=== PATIENT | female | born 1990 | race Caucasian/White ===

== ENCOUNTER → 2016-06-15 | Outpatient (CLI) | payer BC | END | disposition home or self-care (01) | LOC: LABWHC1 13:00 | PROVIDERS: ATTEND Nurse Practitioner Adult Health | DX: G43.909 Migraine, unspecified, not intractable, without status migrainosus (principal) | CPT/HCPCS: 36415; 85652 ==

== ENCOUNTER → 2021-04-04 | Outpatient (CLI) | payer BC ==
[2021-04-04 20:18] LABS: Creatine Kinase 43 U/L (26-186)
[2021-04-04 20:41] LABS: C Reactive Protein <0.30 mg/dL (0.00-0.80); Rheumatoid Factor, Qnt <10 IU/mL (0-15)
[2021-04-05 11:01] LABS: HLA B27 NEGATIVE
== END | disposition home or self-care (01) ==
LOC: LABWHC1 11:06
PROVIDERS: ATTEND Nurse Practitioner Adult Health
DX: Z00.00 Encounter for general adult medical examination without abnormal findings (principal); M25.50 Pain in unspecified joint
CPT/HCPCS: 36415; 82550; 84439; 84443; 85652; 86038; 86140; 86431; 86812

== ENCOUNTER → 2021-06-02 | Outpatient (CLI) | payer BC ==
[2021-06-02 14:53] LABS: Basophils # (A) 0.04 X 10*3/uL (0.00-0.10); Basophils % (A) 0.6 %; Eosinophils # (A) 0.16 X 10*3/uL (0.04-0.35); Eosinophils % (A) 2.5 %; HCT 40.5 % (37.2-46.3); HGB 13.3 g/dL (12.0-15.0); Immature Grans, Automated 0.3 %; Lymphocytes # (A) 0.84 X 10*3/uL (0.90-5.00); Lymphocytes % (A) 12.9 %; MCH 29.3 pg (27.0-32.0); MCHC 32.8 g/dL (32.0-37.0); MCV 89.2 fL (80.0-97.0); Mean Platelet Volume 11.7 fL (9.5-12.2); Monocytes # (A) 0.38 X 10*3/uL (0.20-1.00); Monocytes % (A) 5.9 %; NRBC Per 100 WBC 0 /100 WBCS (0.0-0.0); Neutrophils # (A) 5.05 X 10*3/uL (1.80-7.70); Neutrophils % (A) 77.8 %; Platelet Count 224 X 10*3/uL (140-440); RBC 4.54 X 10*6/uL (4.10-5.20); RDW 13.1 % (11.5-14.5); WBC 6.49 X 10*3/uL (4.50-10.00)
[2021-06-02 16:36] LABS: Ferritin 80.7 ng/mL (10.0-291.0)
[2021-06-02 18:17] LABS: EBV-EA (IgG) <0.2 AI; EBV-EBNA(IgG) <0.2 AI; EBV-VCA (IgG) <0.2 AI; EBV-VCA (IgM) <0.2 AI
[2021-06-03 13:17] LABS: Angiotensin-1 Converting Enz. 26 U/L (8-52)
[2021-06-03 13:56] LABS: APTT 35 Sec(s) (<43); Dilute Russell Viper Venom 41 Sec(s) (<44)
== END | disposition home or self-care (01) ==
LOC: LABWHC1 08:45
PROVIDERS: ATTEND Nurse Practitioner Adult Health
DX: R58 Hemorrhage, not elsewhere classified (principal); I88.9 Nonspecific lymphadenitis, unspecified; L29.9 Pruritus, unspecified
CPT/HCPCS: 36415; 82164; 82607; 82728; 83540; 83550; 85025; 85613; 85730; 86618; 86644; 86645; 86663; 86664; 86665

== ENCOUNTER → 2021-10-06 | Outpatient (CLI) | payer BC ==
[2021-10-06 10:15] VITALS: BP 123/82; PULSE 98; RESP 18; TEMP 98.7
--- NOTE | 2021-10-06 10:38 | P.PAINPG ---
PQRS Measure Charge Sheet Comment: HISTORY OF PRESENT ILLNESS: 31 yr old female as a referral from Dr Reeves presents today with severe and chronic cervical pain secondary to disc bulges for an evaluation. Pt states her pain is localized at the base of her neck x 2 mo with shooting pain upwards to base of head. It is 8/10 in intensity, constant, tingling/throbbing/stabbing pain in character with radiation to the BUEs. Pain is provoked with hypextension and overhead reaching. Pain is palliated with PT which she will start in the afternoons, massage once monthly, chiropractic treatments up until 2 mo ago due to painful treatment, medications (Mobic, Tramadol, Flexeril), topicals, heat, repositioning and rest. PMH: ADD/ADHD, HTN, MDD/ Anxiety PSH: R Mastoid Surgery, R Knee Arthroscopy x 2, R Breast Lumpectomy SH: No tobacco use, occasional ETOH use, No illicit drug use. FH: HTN, Difficulty handling anesthesia. All: See list Meds: See list REVIEW OF ORGAN SYSTEMS: CONSTITUTIONAL: No fevers or chills. No recent weight loss. NEUROLOGICAL: + numbness and tingling along the distal extremities. No seizure disorders or headaches. MUSCULOSKELETAL: + pain PSYCHIATRIC: Denies current depression or suicidal thoughts. Physical Examinations : Constitutional : Cooperative , not in acute distress . Neurologic : Cranial nerve II to XII intact. No focal neurological deficits. Psychiatric : alert & oriented x 3. Matching mood & appropriate affect. Judgment & insight intact. Musculoskeletal : Cervical Spine Motor strength in the deltoid and biceps: Normal right side. Normal Left side Motor strength biceps and the wrist extensors: Normal right side . Normal left side Motor strength in the triceps muscle: Normal right side. Normal left side Deep tendon reflexes: Normal at the biceps. Normal at Brachioradialis. Normal at triceps Vertebral body tenderness to deep palpation over C6 Cervical facet loading test: positive bilaterally Spurling test: positive bilaterally Neck distraction test: positive bilaterally Li sign: positive bilaterally Lumbar spine Motor strength lower extremities ,thigh and legs 5/5 Right side , 5/5 Left side Deep tendon reflexes : Normal Knee Jerk. Normal Ankle Jerk Vertebral body tenderness over Lumbar facet Loading Test: positive Right / positive Left Range of motion of the lumbar spine Flexion 30 degrees, extension 10 degrees Straight Leg Raise test: Left/ Right positive at degree Asaf test: positive right / positive left. Severe tenderness over the Sacroiliac joint on the Right / Left sides Gaenslen test: positive bilaterally Seated flexion test: positive bilaterally. Sacral spine : Severe tenderness over the Sacroiliac joint: right side / left side Range of motion: Flexion of the lumbar spine <60 degrees Range of motion: Extension of the lumbar spine <20 degrees Gaenslen's Test positive Sean's Test positive Asaf test: positive right side / left side Thigh Thrust Test Sacral Thrust Test Imaging: MRI without contrast of the cervical spine from 09/07/21 reviewed Assessment/ Plan : Cervical disc bulges Recommendation of FEDER[place] of C5-C6. May need a series of injections, up to 3 within a 6 mo period for optimal pain relief. Risks, benefits of procedure discussed and patient verbalized understanding. Denies aspirin or anti- coagulant use or medical history of diabetes. Protocol for discontinuation/ continuation of medications alek procedure discussed. All questions answered. I have spent greater than 30 minutes on patient care today. Dr Henson was available by phone for the evaluation of this patient. The time was used to review the medical records including relevant urine studies and Prescription history (MAPs), review of the available imaging, evaluation and examination of the patient, coordination of care with the medical staff and if applicable referring physicians, as well as creation of the medical record PQRS Narrative: Smoking Status Never smoker Home Medications: Ambulatory Orders Calcium Carbonate [Tums] 500 mg PO TID PRN 05/26/14 Ibuprofen [Motrin] 600 mg PO Q6HR PRN #40 tab 05/29/14 Labetalol [Trandate] 100 mg PO BID #40 tab 05/29/14 Dextroamphetamine/Amphetamine [Adderall] 30 mg PO DAILY 04/04/17 Docusate [Colace] 100 mg PO BID #30 capsule 04/04/17 Escitalopram [Lexapro] 10 mg PO DAILY 04/04/17 Hydrocodone/Acetaminophen [[place] 5-325] 1 each PO Q6HR PRN #20 tab 04/04/17 Controlled Substance Measures - Controlled Substance Measures Is patient prescribed a controlled substance at discharge?: No
== END | disposition home or self-care (01) ==
LOC: PNWHC3 08:59
PROVIDERS: ATTEND Specialist
DX: M50.30 Other cervical disc degeneration, unspecified cervical region (principal)
CPT/HCPCS: 99211

== ENCOUNTER → 2021-12-21 | Outpatient (CLI) | payer BC ==
[2021-12-21 09:02] VITALS: BP 143/92; PULSE 100; RESP 18; TEMP 98.1
--- NOTE | 2021-12-21 14:37 | P.PAINPG ---
PQRS Measure Charge Sheet Comment: A 31 yr old female with a history of severe and chronic head and neck pain secondary to occipital neuralgia presents today for evaluation s/p R interlaminar C6-7 EBONIE. Pt stated she experienced 0% pain relief. Pain level is currently at 8/10 in intensity, constant, localized in the base of the head, dull/ achy in character w shooting towards the BL scalp and the R eye. Pain is provoked by lifting and laying on her L side. Pain is alleviated with massages monthly, chirorpactic treatments monthly which she stopped this month due to high pain intensity, heat, ice, medications (Tramadol, Flexeril, Lidocaine, Neurontin, Mobic). She hasn't started PT yet due to scheduling issues. Interventional pain procedures completed include R interlaminar C6-7 x1. Patient is currently on Neurontin, Mobic, Tramadol prin, Flexeril prn, Lidocaine topical. Patient denies any side effects of the medication(s), denies excessive drowsiness or sleepiness, denies suicidal ideation and reports that the current pain medication is helping to control the pain and improve activities of daily living. Patient denies any motor or sensory deficits. Patient denies any fever or night sweats, denies any change in the bowel movements or urination. Physical Examination: +BL G.O.N. TTP -Constitutional: Cooperative. Not in acute distress . - Neurologic: Cranial nerve II to XII intact. No focal neurological deficits. - Psychatric: Alert & oriented x 3. Matching mood & appropriate affect. Judgment and insight intact. - Musculoskeletal: Cervical spine: Muscle bulk/ tone/ strength in the bilateral upper extremities normal Vertebral body tenderness to palpation over Spurling test positive Distraction test positive Facet loading test positive Thoracic spine Muscle bulk / tone/ strength in the bilateral paraspinal muscles normal Vertebral body tender to palpation over Facet loading test positive Lumbar spine: Motor bulk/ tone/ strength lower extremities , thigh and legs : 5/5 Deep tendon reflexes : Normal Knee Jerk. Normal Ankle Jerk . Vertebral body tenderness to palpation over Lumbar Facet Loading Test positive Straight Leg Raise: positive at 30 degrees right side/ left side Gaenslen's Test positive Sacral spine : Severe tenderness over the Sacroiliac joint: right side / left side Range of motion: Flexion of the lumbar spine <60 degrees Range of motion: Extension of the lumbar spine <20 degrees Gaenslen's Test positive Sean's Test positive Asaf test: positive right side / left side Thigh Thrust Test Sacral Thrust Test Assessment and plan: Chronic head & neck pain secondary to occipital neuralgia Recommendation of BL G.O.N. injection. May need a series, up until RFA, for optimal pain relief. Risks, benefits of procedure discussed and pt verbalized understanding. Admits to anticoagulant use and denies a medical history of diabetes. Protocol for discontinuation/ continuation of medications alek procedure discussed. All patient questions answered MAPS reviewed and it was appropriate. I have spent less than 30 minutes on patient care today. Dr Henson was available by phone for the evaluation of this patient. The time was used to review the medical records including relevant urine studies and Prescription history (MAPs), review of the available imaging, evaluation and examination of the patient, coordination of care with the medical staff and if applicable referring physicians, as well as creation of the medical record PQRS Narrative: Smoking Status Never smoker Hx Alcohol Use (MH) No Home Medications: Ambulatory Orders Dextroamphetamine/Amphetamine [Adderall] 30 mg PO DAILY 04/04/17 Albuterol Inhaler [Ventolin Hfa Inhaler] 1 - 2 puff INHALATION DIRECTED PRN 11/08/21 Budesonide-Formot 160-4.5 Mcg [Symbicort 160-4.5 Mcg Inhaler] 2 puff INHALATION BID PRN 11/08/21 DULoxetine HCL [Cymbalta] 60 mg PO DAILY 11/08/21 Etonogestrel/Ethinyl Estradiol [Nuvaring Vaginal Ring] 1 ring VAGINAL DIRECTED 11/08/21 Gabapentin [Neurontin] 300 - 900 mg PO TID PRN 11/08/21 Meloxicam [Mobic] 7.5 mg PO DAILY 11/08/21 Propranolol [Inderal] 10 mg PO TID PRN 11/08/21 Rizatriptan Benzoate [Rizatriptan] 10 mg PO DIRECTED PRN 11/08/21 traMADol HCL 50 mg PO TID PRN 11/08/21 Controlled Substance Measures - Controlled Substance Measures Is patient prescribed a controlled substance at discharge?: No
== END | disposition home or self-care (01) ==
LOC: PNWHC3 08:10
PROVIDERS: ATTEND Specialist
DX: M54.81 Occipital neuralgia (principal)
CPT/HCPCS: 99211

== ENCOUNTER 2022-01-19 09:47 | Day surgery (SDC) | payer BC ==
[2022-01-19 10:40] VITALS: TEMP 98.7
[2022-01-19] MEDS ORDERED: LACTATED RINGERS 1,000 ML IV ONE ×2 (10:53)
[2022-01-19] MEDS ORDERED: TRIAMCINOLONE ACETONIDE 40 MG/ML 1 ML VIAL ONE (11:07)
[2022-01-19] MEDS ORDERED: MIDAZOLAM 2 MG/2 ML VIAL ONE (11:07)
[2022-01-19] MEDS ORDERED: fentaNYL (PF) 50 MCG/ML 2 ML AMP ONE (11:07)
[2022-01-19] MEDS ORDERED: IV FLUID CONTINUATION 1,000 ML IV ONE (11:27)
--- NOTE | 2022-01-19 11:27 | P.PCN ---
Date of Procedure: 01/19/22 Description of Procedure: Pre-operative diagnosis: 1- Bilateral occipital neuralgea Post Operative Diagnosis 1- Bilateral occipital neuralgea Procedure: 1- Bilateral occipital nerve block with ultrasound guidance ANESTHESIA: Conscious sedation with Versed 1 mg and fentanyl 50 micrograms Sedation time: 9792-4420 EBL: Minimal PROCEDURE INDICATION: The patient with neck pain and headache secondary to occipital neuralgea unresponsive to conservative treatments. PROCEDURE DESCRIPTION / TECHNIQUE: The patient was seen and identified in the preoperative area. Risks, benefits, complications, and alternatives were discussed with the patient, the patient agreed to proceed with the procedure and signed the consent. IV was started. Vital signs remained stable throughout the procedure. Patient was taken to the OR and time out was completed. The patient was placed in the (sitting ) position on the stretcher leaning into procedure table. A pillow was placed under the patients chest to increase the cervical interlaminar space. Ultrasound guidance was utilized, started with the right occipital nerve along C2 spinous process was able to identify the semispinalis capitis muscle just beneath the muscle plane the occipital artery was identified. In plain needling was utilized with a 25-gauge 1-1/2 inch needle just medial to the occipital artery after negative aspiration for blood 3 ML's of solution was injected which consisted of 20 mg of Kenalog and 2-1/2 mL of 1% lidocaine. The same procedure was performed on the left side again identified and the semispinalis capitis muscle in the occipital artery. Targeted needle was medial to the occipital artery and after negative aspiration and injection of 3 ML solution consisting of 20 mg of Kenalog and 2 half mL of 1% lidocaine. Patient tolerated procedure well. Patient tolerated procedure well. No acute complications. Ultrasound images were printed
[2022-01-19] MEDS ORDERED: LACTATED RINGERS 1,000 ML IV SCH (11:30)
[2022-01-19 11:31] VITALS: RESP 15
[2022-01-19 11:48] VITALS: BP 135/97; PULSE 75
== END 2022-01-19 12:15 | disposition home or self-care (01) ==
LOC: ORPAIN 09:47
PROVIDERS: ATTEND Anesthesiology
DX: M54.81 Occipital neuralgia (principal)
CPT/HCPCS: 81025; 64405; 76942; J2250; J3301; J3010; 99152

== ENCOUNTER → 2022-02-09 | Outpatient (CLI) | payer BC ==
[2022-02-09 08:33] VITALS: BP 146/101; PULSE 89; RESP 18
--- NOTE | 2022-02-09 14:59 | P.PAINPG ---
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 Pt states she experienced 70 % pain relief x 3 wks s/p procedure. Pain level is currently at 3 /10 in intensity, constant, localized in the base of the head, pressure in character with shooting towards the BL scalp. Pain is provoked as high as 6/10 by hyperextension. Pain is alleviated with occasions (tramadol, Flexeril, Neurontin, Mobic), injections, PT 4 weeks which she is currently an, chiropractic treatments weekly as needed, repositioning and rest. Interventional pain procedures completed include BL ANGELA, [place] x1 Patient is currently on Mobic Patient denies any side effects of the medication(s), denies excessive drowsiness or sleepiness, denies suicidal ideation and reports that the current pain medication is helping to control the pain and improve activities of daily living. Patient denies any motor or sensory deficits. Patient denies any fever or night sweats, denies any change in the bowel movements or urination. Physical Examination: -Constitutional: Cooperative. Not in acute distress . - Neurologic: Cranial nerve II to XII intact. No focal neurological deficits. - Psychatric: Alert & oriented x 3. Matching mood & appropriate affect. Judgment and insight intact. - Musculoskeletal: Cervical spine: +BL ANGELA TTP Muscle bulk/ tone/ strength in the bilateral upper extremities normal Vertebral body tenderness to palpation over Spurling test positive Distraction test positive Facet loading test positive Thoracic spine Muscle bulk / tone/ strength in the bilateral paraspinal muscles normal Vertebral body tender to palpation over Facet loading test positive Lumbar spine: Motor bulk/ tone/ strength lower extremities , thigh and legs : 5/5 Deep tendon reflexes : Normal Knee Jerk. Normal Ankle Jerk . Vertebral body tenderness to palpation over Lumbar Facet Loading Test positive Straight Leg Raise: positive at 30 degrees right side/ left side Gaenslen's Test positive Sacral spine : Severe tenderness over the Sacroiliac joint: right side / left side Range of motion: Flexion of the lumbar spine <60 degrees Range of motion: Extension of the lumbar spine <20 degrees Gaenslen's Test positive Sean's Test positive Asaf test: positive right side / left side Thigh Thrust Test Sacral Thrust Test Assessment and plan: Chronic HAs secondary to cervical disc bulges, BL Occipital Neuralgia, Cervicogenic SILVERIO Recommendation of BL GO an injection #2. May need a series of injections, up to 3 within a six-month timeframe, optimal pain relief. Risks, benefits of procedure discussed and pt verbalized understanding. Admits to anticoagulant use or medical history of diabetes. Protocol for discontinuation/continuation of medications alek procedure discussed. All patient questions answered I have spent less than 30 minutes on patient care today. Dr Henson was available by phone for the evaluation of this patient. The time was used to review the medical records including relevant urine studies and Prescription history (MAPs), review of the available imaging, evaluation and examination of the patient, coordination of care with the medical staff and if applicable referring physicians, as well as creation of the medical record PQRS Narrative: Smoking Status Never smoker Hx Alcohol Use (MH) No Home Medications: Ambulatory Orders Dextroamphetamine/Amphetamine [Adderall] 30 mg PO DAILY 04/04/17 Albuterol Inhaler [Ventolin Hfa Inhaler] 1 - 2 puff INHALATION DIRECTED PRN 11/08/21 Budesonide-Formot 160-4.5 Mcg [Symbicort 160-4.5 Mcg Inhaler] 2 puff INHALATION BID PRN 11/08/21 DULoxetine HCL [Cymbalta] 60 mg PO DAILY 11/08/21 Etonogestrel/Ethinyl Estradiol [Nuvaring Vaginal Ring] 1 ring VAGINAL DIRECTED 11/08/21 Gabapentin [Neurontin] 300 - 900 mg PO TID PRN 11/08/21 Meloxicam [Mobic] 7.5 mg PO DAILY 11/08/21 Propranolol [Inderal] 10 mg PO TID PRN 11/08/21 Rizatriptan Benzoate [Rizatriptan] 10 mg PO DIRECTED PRN 11/08/21 traMADol HCL 50 mg PO TID PRN 11/08/21 Controlled Substance Measures - Controlled Substance Measures Is patient prescribed a controlled substance at discharge?: No
== END | disposition home or self-care (01) ==
LOC: PNWHC3 08:06
PROVIDERS: ATTEND Specialist
DX: G44.86 Cervicogenic headache (principal); M54.81 Occipital neuralgia
CPT/HCPCS: 99211

== ENCOUNTER 2022-03-21 07:05 | Day surgery (SDC) | payer BC ==
[2022-03-20 09:07] VITALS: BMI 34.7
[2022-03-21] MEDS ORDERED: LACTATED RINGERS 1,000 ML IV ONE (07:24)
[2022-03-21 07:36] VITALS: TEMP 98.1
[2022-03-21] MEDS ORDERED: methylPREDNISolone ACETATE 80 MG/ML 1 ML VIAL ONE (07:57)
[2022-03-21] MEDS ORDERED: MIDAZOLAM 2 MG/2 ML VIAL ONE (07:57)
[2022-03-21] MEDS ORDERED: fentaNYL (PF) 50 MCG/ML 2 ML AMP ONE (07:57)
[2022-03-21] MEDS ORDERED: ROPIVACAINE 5 MG/ML 20 ML AMPULE ONE (07:57)
[2022-03-21] MEDS ORDERED: LACTATED RINGERS 1,000 ML IV SCH (08:00)
[2022-03-21] MEDS ORDERED: IV FLUID CONTINUATION 1,000 ML IV ONE (08:15)
[2022-03-21 08:31] VITALS: BP 125/87; PULSE 79; RESP 16
--- NOTE | 2022-03-21 09:20 | P.PCN ---
Date of Procedure: 03/21/22 Description of Procedure: PREOPERATIVE DIAGNOSIS: Occipital neuralgia, and headaches POSTOPERATIVE DIAGNOSIS: Occipital neuralgia, and headaches PROCEDURES: 1. Bilateral Greater occipital nerve block under ultrasound guidance SURGEON: Cheyenne Rodriguez ANESTHESIA: Local and IV sedation : Versed 1 mg, and fentanyl 50 g. Sedation supervision start time: 0 759 Edition supervision ended time: 08 EBL: None. Specimen removed: None PROCEDURE INDICATIONS: This patient with a history of chronic headaches, and occipital neuralgia. Patient tried conservative therapy. Came here for intervention management. Procedure and Findings: The patient was seen and examined and written informed consent was obtained after explaining the risks, benefits and alternative of the procedure to the patient. As per patient request for anxiety IV was started in the preoperative holding area for sedation. The patient was positioned in the sitting position in stretcher with the head slightly flexed and forehead rested on a pillow OR table. The skin preparation was done with ChloraPrep X2 and sterile technique was observed throughout the procedur. By palpation, the external occipital protuberance and mastoid process were identified and mid point in between was located. Using ultrasound guidance , occipital artery identified. A 25-guage, 1.5 inch needle was used for the procedure. A 25-gauge 1.5 inch needle was placed vertically downward, bony contact was obtained, negative aspiration was confirmed and 6 ml solution was injected. The needle was redirected little medially and laterally in a fanning fashion and addition medication was injected after negative aspiration. The block solution containing 0.5% preservative-free ropivacaine 5mL +40 MG of Depo- Medrol. The needle was removed, Entire procedure repeated on the right side for greater occipital nerve block. Needle removed. Needle puncture sites were cleaned and pressure was applied. The patient tolerated the procedure very well. COMPLICATIONS: None. DISPOSITION / PLANS: The patient was placed in a supine position and transferred to the recovery area in a stable condition for observation and was discharged from the recovery room after meeting discharge criteria. Home discharge instructions given to the patient by the staff. The patient was reexamined prior to discharge. The patient will schedule for follow-up visit with the pain clinic in 2-4 weeks duration
== END 2022-03-21 08:44 | disposition home or self-care (01) ==
LOC: ORPAIN 07:05
DX: M54.81 Occipital neuralgia (principal); I10 Essential (primary) hypertension; J45.909 Unspecified asthma, uncomplicated; G54.0 Brachial plexus disorders; F12.90 Cannabis use, unspecified, uncomplicated; Z98.890 Other specified postprocedural states; Z88.1 Allergy status to other antibiotic agents; Z88.2 Allergy status to sulfonamides; Z91.040 Latex allergy status; Z88.0 Allergy status to penicillin; Z88.8 Allergy status to other drugs, medicaments and biological substances
CPT/HCPCS: 99152; 81025; 64405; J2250; J1040; J3010; J2795

== ENCOUNTER → 2022-04-17 | Outpatient (CLI) | payer BC ==
[2022-04-17 08:57] VITALS: BP 130/88; PULSE 83; RESP 18; TEMP 97.9
--- NOTE | 2022-04-17 14:44 | P.PAINPG ---
PQRS Measure Charge Sheet Comment: A 31 yr old female with a history of severe and chronic neck pain secondary to cervicogenic SILVERIO and occipital neuralgia presents today for evaluation s/p BL ANGELA injection. Pt states she experienced 0 % pain relief x 4 wks s/p procedure. Pain level is currently at 8 /10 in intensity, constant, localized in the R cervical spine, dull/ achy in character w tightness towards the R neck and towards the collarbone. Pain is provoked by abduction. Pain is alleviated with medications, injections, ice, heat, PT x 8 wks which ended in Mar 2022, chiropractic treatments weekly currently, repositioning and rest. Interventional pain procedures completed include BL ANGELA Patient is currently on Mobic, Neurontin, Ultram Patient denies any side effects of the medication(s), denies excessive drowsiness or sleepiness, denies suicidal ideation and reports that the current pain medication is helping to control the pain and improve activities of daily living. Patient denies any motor or sensory deficits. Patient denies any fever or night sweats, denies any change in the bowel movements or urination. Physical Examination: -Constitutional: Cooperative. Not in acute distress . - Neurologic: Cranial nerve II to XII intact. No focal neurological deficits. - Psychatric: Alert & oriented x 3. Matching mood & appropriate affect. Judgment and insight intact. - Musculoskeletal: Cervical spine: Muscle bulk/ tone/ strength in the bilateral upper extremities normal Vertebral body tenderness to palpation over Spurling test positive Distraction test positive Facet loading test positive over R C5-C7 Thoracic spine Muscle bulk / tone/ strength in the bilateral paraspinal muscles normal Vertebral body tender to palpation over Facet loading test positive Lumbar spine: Motor bulk/ tone/ strength lower extremities , thigh and legs : 5/5 Deep tendon reflexes : Normal Knee Jerk. Normal Ankle Jerk . Vertebral body tenderness to palpation over Lumbar Facet Loading Test positive Straight Leg Raise: positive at 30 degrees right side/ left side Gaenslen's Test positive Sacral spine : Severe tenderness over the Sacroiliac joint: right side / left side Range of motion: Flexion of the lumbar spine <60 degrees Range of motion: Extension of the lumbar spine <20 degrees Gaenslen's Test positive Asaf test: positive right side / left side Thigh Thrust Test Sacral Thrust Test Assessment and plan: Chronic neck pain secondary to cervicogenic SILVERIO and occipital neuralgia Recommendation of R anterior scalene injection. May need a series, up to every 3 mo, for optimal pain relief. Risks, benefits of procedure discussed and pt verbalized understanding. Admits to anticoagulant use or medical history of diabetes. Protocol for discontinuation/ continuation of medications alek procedure discussed. All patient questions answered I have spent less than 30 minutes on patient care today. Dr Henson was available by phone for the evaluation of this patient. The time was used to review the medical records including relevant urine studies and Prescription history (MAPs), review of the available imaging, evaluation and examination of the patient, coordination of care with the medical staff and if applicable referring physicians, as well as creation of the medical record PQRS Narrative: Smoking Status Never smoker Hx Alcohol Use (MH) No Home Medications: Ambulatory Orders Dextroamphetamine/Amphetamine [Adderall] 30 mg PO DAILY 04/04/17 Albuterol Inhaler [Ventolin Hfa Inhaler] 1 - 2 puff INHALATION DIRECTED PRN 11/08/21 Budesonide-Formot 160-4.5 Mcg [Symbicort 160-4.5 Mcg Inhaler] 2 puff INHALATION BID PRN 11/08/21 DULoxetine HCL [Cymbalta] 60 mg PO DAILY 11/08/21 Etonogestrel/Ethinyl Estradiol [Nuvaring Vaginal Ring] 1 ring VAGINAL DIRECTED 11/08/21 Gabapentin [Neurontin] 300 - 900 mg PO TID PRN 11/08/21 Meloxicam [Mobic] 7.5 mg PO DAILY 11/08/21 Propranolol [Inderal] 10 mg PO TID PRN 11/08/21 traMADol HCL 50 mg PO TID PRN 11/08/21 Ubrogepant [Ubrelvy] 50 mg PO DAILY 03/20/22 Controlled Substance Measures - Controlled Substance Measures Is patient prescribed a controlled substance at discharge?: No
== END ==
LOC: PNWHC3 08:22
PROVIDERS: ATTEND Specialist
DX: M54.81 Occipital neuralgia (principal); G89.29 Other chronic pain; Z88.0 Allergy status to penicillin; Z88.2 Allergy status to sulfonamides; Z91.040 Latex allergy status; Z88.1 Allergy status to other antibiotic agents; Z88.4 Allergy status to anesthetic agent
CPT/HCPCS: 99211

== ENCOUNTER 2022-06-13 08:54 | Day surgery (SDC) | payer BC ==
[~2022-06-13 08:54] MED LIST: LACTATED RINGERS 1,000 ML IV SCH
[2022-06-13 10:23] VITALS: RESP 16; TEMP 98
[2022-06-13] MEDS ORDERED: LIDOCAINE 1% (10MG/ML) FOR IV START INTRADERMA ONE (10:23)
[2022-06-13 10:34] LABS: Glucose,Whole Blood 93 mg/dL (70-110)
[2022-06-13] MEDS ORDERED: fentaNYL (PF) 50 MCG/ML 2 ML AMP ONE (10:45)
[2022-06-13] MEDS ORDERED: ROPIVACAINE 5 MG/ML 20 ML AMPULE ONE (10:45)
[2022-06-13] MEDS ORDERED: MIDAZOLAM 2 MG/2 ML VIAL ONE (10:45)
[2022-06-13] MEDS ORDERED: IV FLUID CONTINUATION 1,000 ML IV ONE (11:05)
--- NOTE | 2022-06-13 11:10 | P.PCN ---
Date of Procedure: 06/13/22 Procedure(s) Performed: Procedure= right anterior scalene muscle block under ultrasound guidance Preoperative diagnosis= 1-right side thoracic outlet syndrome with Right anterior scalene muscle involmovement 2-cervical degenerative disc disease. 3 thoracic degenerative disc disease Postoperative diagnosis=Same as preop Diagnosis . Complication = none Condition= stable . anesthesia= sedation with Versed 2 mg and fentanyl 100 g Sedation start time:1048 Sedation end time : 1059 Indication for the procedure= patient complaining of . Neck pain and headache and right upper extremity weakness and numbness, patient was referred by vascular surgeon for right side anterior scalene block, with the diagnosis of right side thoracic outlet syndrome with right and anterior scalene muscle involvement, procedure risk and benefits and alternatives discussed with the jose frederick and agreed with the preceding patient taken to the procedure room placed in supine position, though the standard monitors applied, moderate sedation was used to decrease the patient's anxiety been under sterile technique using the sound guidance the 22 gauge needle advanced slowly under ultrasound guidance as the anterior scalene muscle on the right side, the needle placement confirmed that is in the middle of the anterior scalene muscles, after negative aspiration for heme, or if 12 mL of ropivacaine 0.5% injected in the right interscalene muscles. after intermittent aspiration ,she tolerated the procedure well without any complications.
[2022-06-13 11:30] VITALS: BP 139/88; PULSE 83
== END 2022-06-13 11:41 | disposition home or self-care (01) ==
LOC: ORPAIN 08:54
PROVIDERS: ATTEND Specialist
DX: G54.0 Brachial plexus disorders (principal); Z88.0 Allergy status to penicillin; Z88.1 Allergy status to other antibiotic agents; Z88.2 Allergy status to sulfonamides
CPT/HCPCS: 81025; 64999; 64415; 76942; 99152; J2250; J3010; J2795

== ENCOUNTER 2023-11-19 11:32 | Emergency (ER) | payer OTHER ==
[2023-11-19] MEDS ORDERED: HYDROmorphone 1 MG/ML 1 ML SYRINGE ONE ×2 (11:59→14:20)
[2023-11-19] MEDS ORDERED: METOCLOPRAMIDE 5 MG/ML 2 ML VIAL ONE (12:00)
[2023-11-19] MEDS ORDERED: KETOROLAC 15 MG/ML 1 ML VIAL ONE ×2 (12:00→14:20)
== END 2023-11-19 14:42 | disposition home or self-care (01) ==
LOC: EC 11:32
DX: R10.9 Unspecified abdominal pain
CPT/HCPCS: 99283

== ENCOUNTER 2023-11-26 16:10 | Emergency (ER) | payer OTHER ==
[2023-11-26] MEDS ORDERED: HYDROmorphone 1 MG/ML 1 ML SYRINGE ONE (19:29)
[2023-11-26] MEDS ORDERED: KETOROLAC 15 MG/ML 1 ML VIAL ONE (19:30)
[2023-11-26] MEDS ORDERED: PROCHLORPERAZINE INJ 10 MG/2 ML VIAL ONE (19:30)
[2023-11-26] MEDS ORDERED: Acetaminophen-Codeine 300-30mg TAB ONE (21:06)
[2023-11-26] MEDS ORDERED: ACET/COD 300 MG/30 MG STARTER PACK 6 TAB BTL PO ONE (21:07)
--- NOTE | 2023-12-18 12:36 | CT ---
Patient: Brittany Basilio Ordering Physician: Unknown, Unknown ID: [id number] Phone, Pager: Phone: N/A Pager: N/A : 1990 Age/Gender: 33Y, F Primary Location: N/A Procedure: A/P WO Study Date: 11/26/2023 7:08:43 PM EXAMINATION TYPE: CT abdomen wo con CT DLP: 320 mGycm, Automated exposure control for dose reduction was used. DATE OF EXAM: 11/26/2023 8:36 PM COMPARISON: None CLINICAL INDICATION: Right lower quadrant pain. TECHNIQUE: Axial CT abdomen wo con;Sagittal and coronal reformats were created on a separate worksta tion. Contrast used: mL of , (none if empty) Oral contrast used: (none if empty) FINDINGS: LOWER CHEST: Unremarkable ABDOMEN LIVER: Unremarkable GALLBLADDER AND BILE DUCTS: The gallbladder surgically absent. PANCREAS: Unremarkable. SPLEEN: Unremarkable. ADRENAL GLANDS: Unremarkable. KIDNEYS AND URETERS: No obstructing left renal calculus measuring 3 mm. No right renal calculi. Right renal calculi. PELVIS BLADDER: Unremarkable REPRODUCTIVE: Unremarkable. ABDOMEN & PELVIS STOMACH AND BOWEL: No evidence of bowel obstruction. Appendix is visualized and normal. PERITONEUM/RETROPERITONEUM: No evidence of pneumoperitoneum or free fluid. VASCULATURE: No evidence of aortic aneurysm. MUSCULOSKELETAL: No acute osseous abnormalities LYMPH NODES: No gross evidence for lymphadenopathy. SOFT TISSUE/ABDOMINAL WALL: Unremarkable IMPRESSION: 1. No evidence for acute abdominal process. 2. Nonobstructing left renal calculus.
== END 2023-11-26 21:19 | disposition home or self-care (01) ==
LOC: EC 16:10
CPT/HCPCS: 74176; 96374; 96375; 99284

== ENCOUNTER 2023-12-22 00:56 | Emergency (ER) | payer OTHER ==
[2023-12-22 01:02] VITALS: TEMP 97.9
[2023-12-22 01:45] LABS: Glucose,Whole Blood 162 mg/dL (70-110)
[2023-12-22] MEDS: SODIUM CHLORIDE 0.9% 1,000 ML IV STA (01:47)
[2023-12-22 02:08] LABS: Basophils # (A) 0.1 k/uL (0-0.2); Basophils % (A) 0 %; Eosinophils # (A) 0.2 k/uL (0-0.7); Eosinophils % (A) 1 %; HCT 26.6 % (34.0-46.0); HGB 8.4 gm/dL (11.4-16.0); Hypochromasia Moderate; Lymphocytes # (A) 1.5 k/uL (1.0-4.8); Lymphocytes % (A) 7 %; MCH 28.8 pg (25.0-35.0); MCHC 31.5 g/dL (31.0-37.0); MCV 91.6 fL (80.0-100.0); Monocytes # (A) 0.9 k/uL (0-1.0); Monocytes % (A) 4 %; Neutrophils # (A) 19.1 k/uL (1.3-7.7); Neutrophils % (A) 87 %; Platelet Count 467 k/uL (150-450); RBC 2.91 m/uL (3.80-5.40); RDW 13.5 % (11.5-15.5); WBC 21.9 k/uL (3.8-10.6)
[2023-12-22 02:21] LABS: ALT 12 U/L (4-34); AST 15 U/L (14-36); African American GFR (CKD) >90 (>60 ml/min/1.73 sqM); Alkaline Phosphatase 54 U/L (38-126); Anion Gap 12 mmol/L; Blood Urea Nitrogen 26 mg/dL (7-17); Calcium 8.3 mg/dL (8.4-10.2); Carbon Dioxide 19 mmol/L (22-30); Chloride 107 mmol/L (98-107); Glucose 139 mg/dL (74-99); Magnesium 1.5 mg/dL (1.6-2.3); Non-African American GFR(CKD) >90 (>60 ml/min/1.73 sqM); Potassium 3.6 mmol/L (3.5-5.1); Sodium 138 mmol/L (137-145); Total Bilirubin 0.3 mg/dL (0.2-1.3)
--- NOTE | 2023-12-22 02:23 | ED ---
General Adult HPI - General Chief complaint: Syncope Stated complaint: Syncope Time Seen by Provider: 12/22/23 01:10 Source: patient Mode of arrival: ambulatory Limitations: no limitations - History of Present Illness Initial comments: 33-year-old female presents the emergency department after a syncopal episode. Patient states that she got up to use the bathroom. She had not felt well. She ended up passing out and hitting her head on the ground. Patient also had an episode of bright red emesis as well as defecating on herself. Patient was immediately brought up to the hospital by her father. She denies having any pain. Does admit to be under a considerable amount of stress. She has had issues with abdominal pain and back pain for which she has undergone a lot of testing. She is currently being referred to a neurologist. She takes Aleve daily. She denies history of ulcers. Patient drinks socially. No history of liver disease. Patient is currently on her menstrual cycle. Denies concern for . Denies history of cardiac disease. No chest pain or difficulty breathing. There was no seizure-like activity. No other alleviating, precipitating or modifying factors - Related Data Home Medications Medication Instructions Recorded Confirmed Dextroamphetamine/Amphetamine 30 mg PO DAILY 04/04/17 06/12/22 [Adderall] Albuterol Inhaler [Ventolin Hfa 1 - 2 puff INHALATION DIRECTED 11/08/21 06/12/22 Inhaler] PRN Budesonide-Formot 160-4.5 Mcg 2 puff INHALATION BID PRN 11/08/21 06/12/22 [Symbicort 160-4.5 Mcg Inhaler] DULoxetine HCL [Cymbalta] 60 mg PO DAILY 11/08/21 06/12/22 Etonogestrel/Ethinyl Estradiol 1 ring VAGINAL DIRECTED 11/08/21 06/12/22 [Nuvaring Vaginal Ring] Gabapentin [Neurontin] 300 - 900 mg PO TID PRN 11/08/21 06/12/22 Meloxicam [Mobic] 7.5 mg PO DAILY 11/08/21 06/12/22 Propranolol [Inderal] 10 mg PO TID PRN 11/08/21 06/12/22 traMADol HCL 50 mg PO TID PRN 11/08/21 06/12/22 Ubrogepant [Ubrelvy] 50 mg PO DAILY 03/20/22 06/12/22 ondansetron HCL [Zofran] 8 mg PO BID PRN 06/12/22 06/12/22 Allergies Allergy/AdvReac Type Severity Reaction Status Date / Time amoxicillin trihydrate Allergy Rash/Hives Verified 12/22/23 01:02 [From Augmentin] cefpodoxime proxetil Allergy Rash/Hives Verified 12/22/23 01:02 [From Vantin] Penicillins Allergy Rash/Hives Verified 12/22/23 01:02 potassium clavulanate Allergy Rash/Hives Verified 12/22/23 01:02 [From Augmentin] succinylcholine Allergy "hard time Verified 12/22/23 01:02 waking up" one time after mastoid surgery sulfamethoxazole Allergy Rash/Hives Verified 12/22/23 01:02 [From Bactrim] trimethoprim [From Bactrim] Allergy Rash/Hives Verified 12/22/23 01:02 Latex, Natural Rubber AdvReac Rash/Hives Verified 12/22/23 01:02 Review of Systems ROS Statement: Those systems with pertinent positive or pertinent negative responses have been documented in the HPI. ROS Other: All systems not noted in ROS Statement are negative. Past Medical History Past Medical History: Asthma, Hypertension, Osteoarthritis (OA) Additional Past Medical History / Comment(s): CURRENT: MIGRAINES FOR DAYS WITH NAUSEA. Migraines, hx preeclampsia with , pleurisy, two herniated disks in neck, cubital tunnel syndrome rt elbow, anemia History of Any Multi-Drug Resistant Organisms: None Reported Past Surgical History: Breast Surgery, Cholecystectomy, Orthopedic Surgery Additional Past Surgical History / Comment(s): mastoid surgery, myringotomies x 14 times over several years as a child, rt knee arthroscopy x 2, rt breast lumpectomy, calcium deposit removed toe rt foot, right CTS & cubital tunneL. PAIN CLINIC PROCEDURES Past Anesthesia/Blood Transfusion Reactions: Previous Problems w/ Anesthesia, Family History of Problems w/ Anesthesia, Postoperative Nausea & Vomiting (PONV) Additional Past Anesthesia/Blood Transfusion Reaction / Comment(s): severe PONV, takes a long time to come out once after mastoid surgery, father also has long time coming out after succinylcholine may years ago. pt does not have any other information and she has never been tested Past Psychological History: ADD/ADHD, Anxiety, Depression Smoking Status: Never smoker Past Alcohol Use History: Rare Past Drug Use History: Marijuana - Past Family History Father Additional Family Medical History / Comment(s): severe anesthesia reaction to succinylcholine. pt does not have any other information General Exam Limitations: no limitations General appearance: alert, in distress, other (pale) Head exam: Present: atraumatic, normocephalic, normal inspection Eye exam: Present: normal appearance, PERRL, EOMI. Absent: scleral icterus, conjunctival injection, periorbital swelling ENT exam: Present: normal exam, mucous membranes moist, other (trace blood left nare) Neck exam: Present: normal inspection. Absent: tenderness, meningismus, lymphadenopathy Respiratory exam: Present: normal lung sounds bilaterally. Absent: respiratory distress, wheezes, rales, rhonchi, stridor Cardiovascular Exam: Present: tachycardia GI/Abdominal exam: Present: soft, normal bowel sounds. Absent: distended, tenderness, guarding, rebound, rigid Rectal exam: Present: heme (-) stool, other (brown stool - scant) Neurological exam: Present: alert, oriented X3, CN II-XII intact Psychiatric exam: Present: normal affect, normal mood Skin exam: Present: warm, dry, intact, normal color. Absent: rash Course Vital Signs 12/22/23 12/22/23 12/22/23 01:00 02:15 02:30 Temperature 97.9 F Pulse Rate 130 H 105 H 95 Respiratory 18 18 18 Rate Blood Pressure 59/42 93/50 90/56 O2 Sat by Pulse 100 100 100 Oximetry 12/22/23 12/22/23 12/22/23 02:45 03:00 04:09 Temperature Pulse Rate 82 80 81 Respiratory 18 18 16 Rate Blood Pressure 78/53 92/52 86/49 O2 Sat by Pulse 100 100 100 Oximetry Medical Decision Making - Medical Decision Making Was pt. sent in by a medical professional or institution (, PA, MANAGER INSPECTION, urgent care, hospital, or shelter...) When possible be specific @ -No Did you speak to anyone other than the patient for history (EMS, parent, family, police, friend...)? What history was obtained from this source @ -Spoke with patient's father and brother for history Did you review nursing and triage notes (agree or disagree)? Why? @ -I reviewed and agree with nursing and triage notes Were old charts reviewed (outside hosp., previous admission, EMS record, old EKG, old radiological studies, urgent care reports/EKG's, shelter records)? Report findings @ -No old charts were reviewed Differential Diagnosis (chest pain, altered mental status, abdominal pain women, abdominal pain men, vaginal bleeding, weakness, fever, dyspnea, syncope, headache, dizziness, GI bleed, back pain, seizure, CVA, palpatations, mental health, musculoskeletal)? @ -Differential Syncope: Valvular disease, hypertrophic cardiomyopathy, pulmonary embolism, tamponade, tachycardia, bradycardia, [place], hypovolemia, hemorrhage, dissection, anemia, intracranial hemorrhage, seizure, hypoglycemia, carbon monoxide poisoning, this is not meant to be an all-inclusive list. EKG interpreted by me (3pts min.). @ -yes and demonstrate sinus tachycardia with a rate of 101. [place] interval 135. QRS 100. QTc of 393. No acute ST segment elevations or depressions X-rays interpreted by me (1pt min.). @ -X-ray demonstrates no acute process CT interpreted by me (1pt min.). @ -None done U/S interpreted by me (1pt. min.). @ -None done What testing was considered but not performed or refused? (CT, X-rays, U/S, labs)? Why? @ -CT abdomen was considered however patient has no abdominal pain. Patient requires transfer due to lack of GI coverage and therefore recommended testing if receiving facility sees fit What meds were considered but not given or refused? Why? @ -None Did you discuss the management of the patient with other professionals (professionals i.e. , PA, MANAGER INSPECTION, lab, RT, psych nurse, professor of social work, technical communicator, teacher, commanding officer traffic division, top case assembler)? Give summary @ -Yes, spoke with Dr. Spaulding is the GI specialist at [facility]. I also spoke with Dr. Kamara the accepting ER physician at [facility] Was smoking cessation discussed for >3mins.? @ -No Was critical care preformed (if so, how long)? @ -yes, 35 minutes management of upper GI bleed, NSTEMI with transfer Were there social determinants of health that impacted care today? How? (Homelessness, low income, unemployed, alcoholism, drug addiction, transportation, low edu. Level, literacy, decrease access to med. care, [place] [facility], rehab)? @ -No Was there de-escalation of care discussed even if they declined (Discuss DNR or withdrawal of care, Hospice)? DNR status @ -No What co-morbidities impacted this encounter? (DM, HTN, Smoking, COPD, CAD, Cancer, CVA, ARF, Chemo, Hep., AIDS, mental health diagnosis, sleep apnea, morbid obesity)? @ -None Was patient admitted / discharged? Hospital course, mention meds given and route, prescriptions, significant lab abnormalities, going to OR and other pertinent info. @ -Upon arrival patient seen and evaluated in all 4. Thorough history and physical exam was performed. Patient has significantly low blood pressure at this time. Patient placed on continuous pulse ox and cardiac monitoring. IV is established. Laboratory studies are conducted. Rectal exam was performed and demonstrates scant amount of brown stool which does come up is occult negative. Patient does have improvement in her blood pressure with 1 L bolus of normal saline. 80 mg of Protonix is administered. Chest x-ray and CT of the brain is performed due to patient's head injury. Labs do show a hemoglobin of 8.4. Troponin elevated at 0.06. EKG demonstrates no acute findings. GI specialist not available at our facility. Due to the reported hematemesis I did recommend transfer. Called and spoke with Dr. Spaulding and Dr. Kamara kept the patient as a transfer. After the patient is excepted she does have an episode of bloody stool. She remains hemodynamically stable. Type and screen is available. She will be transferred to receiving facility n.p.o. status. COBRA forms are signed. Patient transferred in stable condition Undiagnosed new problem with uncertain prognosis? @ -No Drug Therapy requiring intensive monitoring for toxicity (Heparin, Nitro, Insulin, Cardizem)? @ -No Were any procedures done? @ -No Diagnosis/symptom? @ -Acute syncope, blunt head trauma, acute hematemesis, acute blood loss anemia suspected upper GI bleed, NSTEMI Acute, or Chronic, or Acute on Chronic? @ -Acute Uncomplicated (without systemic symptoms) or Complicated (systemic symptoms)? @ -complicated Side effects of treatment? @ -No Exacerbation, Progression, or Severe Exacerbation? @ -No Poses a threat to life or bodily function? How? (Chest pain, [place], [place], pneumonia, PE, COPD, DKA, ARF, appy, cholecystitis, CVA, Diverticulitis, Homicidal, Suicidal, threat to staff... and all critical care pts) @ -Yes as patient is profoundly hypotensive - Lab Data Result diagrams: 12/22/23 01:46 12/22/23 01:46 Lab Results 12/22/23 12/22/23 12/22/23 Range/Units 01:43 01:46 01:46 WBC 21.9 H (3.8-10.6) k/uL RBC 2.91 L (3.80-5.40) m/uL Hgb 8.4 L (11.4-16.0) gm/dL Hct 26.6 L (34.0-46.0) % MCV 91.6 (80.0-100.0) fL MCH 28.8 (25.0-35.0) pg MCHC 31.5 (31.0-37.0) g/dL RDW 13.5 (11.5-15.5) % Plt Count 467 H (150-450) k/uL MPV 8.0 Neutrophils % 87 % Lymphocytes % 7 % Monocytes % 4 % Eosinophils % 1 % Basophils % 0 % Neutrophils # 19.1 H (1.3-7.7) k/uL Lymphocytes # 1.5 (1.0-4.8) k/uL Monocytes # 0.9 (0-1.0) k/uL Eosinophils # 0.2 (0-0.7) k/uL Basophils # 0.1 (0-0.2) k/uL Hypochromasia Moderate PT 11.0 (10.0-12.5) sec INR 1.0 (<1.2) APTT 21.1 L (22.0-30.0) sec Sodium (137-145) mmol/L Potassium (3.5-5.1) mmol/L Chloride (98-107) mmol/L Carbon Dioxide (22-30) mmol/L Anion Gap mmol/L BUN (7-17) mg/dL Creatinine (0.52-1.04) mg/dL Est GFR (CKD-EPI)AfAm (>60 ml/min/1.73 sqM) Est GFR (CKD-EPI)NonAf (>60 ml/min/1.73 sqM) Glucose (74-99) mg/dL POC Glucose (mg/dL) 162 H (70-110) mg/dL POC Glu Airbrush Painter ID Olayinka Schneider Calcium (8.4-10.2) mg/dL Magnesium (1.6-2.3) mg/dL Total Bilirubin (0.2-1.3) mg/dL AST (14-36) U/L ALT (4-34) U/L Alkaline Phosphatase (38-126) U/L Troponin I (0.000-0.034) ng/mL Total Protein (6.3-8.2) g/dL Albumin (3.5-5.0) g/dL Stool Occult Blood (Negative) Blood Type Blood Type Recheck Bld Type Recheck Status Antibody Screen Spec Expiration Date 12/22/23 12/22/23 12/22/23 Range/Units 01:46 01:46 02:03 WBC (3.8-10.6) k/uL RBC (3.80-5.40) m/uL Hgb (11.4-16.0) gm/dL Hct (34.0-46.0) % MCV (80.0-100.0) fL MCH (25.0-35.0) pg MCHC (31.0-37.0) g/dL RDW (11.5-15.5) % Plt Count (150-450) k/uL MPV Neutrophils % % Lymphocytes % % Monocytes % % Eosinophils % % Basophils % % Neutrophils # (1.3-7.7) k/uL Lymphocytes # (1.0-4.8) k/uL Monocytes # (0-1.0) k/uL Eosinophils # (0-0.7) k/uL Basophils # (0-0.2) k/uL Hypochromasia PT (10.0-12.5) sec INR (<1.2) APTT (22.0-30.0) sec Sodium 138 (137-145) mmol/L Potassium 3.6 (3.5-5.1) mmol/L Chloride 107 (98-107) mmol/L Carbon Dioxide 19 L (22-30) mmol/L Anion Gap 12 mmol/L BUN 26 H (7-17) mg/dL Creatinine 0.81 (0.52-1.04) mg/dL Est GFR (CKD-EPI)AfAm >90 (>60 ml/min/1.73 sqM) Est GFR (CKD-EPI)NonAf >90 (>60 ml/min/1.73 sqM) Glucose 139 H (74-99) mg/dL POC Glucose (mg/dL) (70-110) mg/dL POC Glu Airbrush Painter ID Calcium 8.3 L (8.4-10.2) mg/dL Magnesium 1.5 L (1.6-2.3) mg/dL Total Bilirubin 0.3 (0.2-1.3) mg/dL AST 15 (14-36) U/L ALT 12 (4-34) U/L Alkaline Phosphatase 54 (38-126) U/L Troponin I 0.060 H* (0.000-0.034) ng/mL Total Protein 5.0 L (6.3-8.2) g/dL Albumin 3.0 L (3.5-5.0) g/dL Stool Occult Blood (Negative) Blood Type O Positive Blood Type Recheck O Pos Bld Type Recheck Status No Antibody Screen NEGATIVE Spec Expiration Date 12/25/2023 - 230212/22/23 Range/Units 02:46 WBC (3.8-10.6) k/uL RBC (3.80-5.40) m/uL Hgb (11.4-16.0) gm/dL Hct (34.0-46.0) % MCV (80.0-100.0) fL MCH (25.0-35.0) pg MCHC (31.0-37.0) g/dL RDW (11.5-15.5) % Plt Count (150-450) k/uL MPV Neutrophils % % Lymphocytes % % Monocytes % % Eosinophils % % Basophils % % Neutrophils # (1.3-7.7) k/uL Lymphocytes # (1.0-4.8) k/uL Monocytes # (0-1.0) k/uL Eosinophils # (0-0.7) k/uL Basophils # (0-0.2) k/uL Hypochromasia PT (10.0-12.5) sec INR (<1.2) APTT (22.0-30.0) sec Sodium (137-145) mmol/L Potassium (3.5-5.1) mmol/L Chloride (98-107) mmol/L Carbon Dioxide (22-30) mmol/L Anion Gap mmol/L BUN (7-17) mg/dL Creatinine (0.52-1.04) mg/dL Est GFR (CKD-EPI)AfAm (>60 ml/min/1.73 sqM) Est GFR (CKD-EPI)NonAf (>60 ml/min/1.73 sqM) Glucose (74-99) mg/dL POC Glucose (mg/dL) (70-110) mg/dL POC Glu Airbrush Painter ID Calcium (8.4-10.2) mg/dL Magnesium (1.6-2.3) mg/dL Total Bilirubin (0.2-1.3) mg/dL AST (14-36) U/L ALT (4-34) U/L Alkaline Phosphatase (38-126) U/L Troponin I (0.000-0.034) ng/mL Total Protein (6.3-8.2) g/dL Albumin (3.5-5.0) g/dL Stool Occult Blood Negative (Negative) Blood Type Blood Type Recheck Bld Type Recheck Status Antibody Screen Spec Expiration Date Disposition Clinical Impression: Syncope, Upper GI bleed, Hypotension, NSTEMI (non-ST elevated myocardial infarction) Disposition: OTHER INSTITUTION NOT DEFINED Condition: Serious Is patient prescribed a controlled substance at d/c from ED?: No Referrals: Alex Austin MD [Primary Care Provider] - 1-2 days Time of Disposition: 05:29 - Out of Hospital Transfer - Req. Specs Out of Hospital Transfer - Requested Specifics: Other Emergency Center ([facility]
[2023-12-22 02:24] LABS: Partial Thromboplastin Time 21.1 sec (22.0-30.0)
--- NOTE | 2023-12-22 02:40 | CT ---
EXAM: CT Head Without Intravenous Contrast CLINICAL HISTORY: ITS.REASON CT Reason: syncope, fall, head injury TECHNIQUE: Axial computed tomography images of the head/brain without intravenous contrast. CTDI is 45.2 mGy and DLP is 1058 mGy-cm. This CT exam was performed using one or more of the following dose reduction techniques: automated exposure control, adjustment of the mA and/or kV according to patient size, and/or use of iterative reconstruction technique. COMPARISON: No relevant prior studies available. FINDINGS: Brain: Unremarkable. No hemorrhage. No significant white matter disease. No edema. Ventricles: Unremarkable. No ventriculomegaly. Bones/joints: Unremarkable. No acute fracture. Soft tissues: Unremarkable. Sinuses: Unremarkable as visualized. No acute sinusitis. Mastoid air cells: Unremarkable as visualized. No mastoid effusion. IMPRESSION: Normal head/brain CT. EXAM: CT Cervical Spine Without Intravenous Contrast CLINICAL HISTORY: ITS.REASON CT Reason: syncope, fall, head injury TECHNIQUE: Axial computed tomography images of the cervical spine without intravenous contrast. CTDI is 13.7 mGy and DLP is 387.2 mGy-cm. This CT exam was performed using one or more of the following dose reduction techniques: automated exposure control, adjustment of the mA and/or kV according to patient size, and/or use of iterative reconstruction technique. COMPARISON: No relevant prior studies available. FINDINGS: Vertebrae: Unremarkable. No acute fracture. Discs/spinal canal/neural foramina: No acute findings. No spinal canal stenosis. Soft tissues: Unremarkable. IMPRESSION: Normal cervical spine CT.
--- NOTE | 2023-12-22 02:51 | XR ---
EXAM: XR Chest, 2 Views CLINICAL HISTORY: ITS.REASON XR Reason: syncope TECHNIQUE: Frontal and lateral views of the chest. COMPARISON: No previous studies. FINDINGS: Lungs: Unremarkable. No consolidative changes or pleural effusions. Pleural space: See above. Heart: Heart is normal in size. No cardiomegaly. Mediastinum: Unremarkable. Normal mediastinal contour. Bones/joints: Osseous structures and soft tissues are unremarkable. No acute fracture. Other findings: Hypoaeration. IMPRESSION: 1. Hypoaeration. 2. No consolidative changes or pleural effusions.
[2023-12-22] MEDS: SODIUM CHLORIDE 0.9% 1,000 ML IV ONE (05:38)
[2023-12-22] MEDS: PANTOPRAZOLE 40 MG/10 ML VIAL IVP STA (05:39)
[2023-12-22] MEDS: MAGNESIUM SULFATE-D5W PMX 1 GM in DEXTROSE/WATER 1 100ML.BAG IVPB SCH (05:39)
[2023-12-22 05:42] VITALS: BP 101/56; PULSE 92; RESP 18
[2023-12-22 05:53] LABS: Appearance,Urine Clear (Clear); Bacteria,Urine Rare /hpf; Bilirubin,Urine Negative (Negative); Blood,Urine Small (Negative); Color,Urine Colorless; Glucose,Urine (UA) Negative (Negative); Hyaline Casts,Urine 1 /lpf (0-2); Ketones,Urine Negative (Negative); Leukocyte Esterase,Urine Negative (Negative); Mucus,Urine Occasional /hpf; Nitrite,Urine Negative (Negative); Protein,Urine Trace (Negative); RBC,Urine 2 /hpf (0-5); Specific Gravity,Urine 1.025 (1.001-1.035); Squamous Epithelial Cell,Urine 3 /hpf (0-4); Urobilinogen,Urine <2.0 mg/dL (<2.0); WBC,Urine 7 /hpf (0-5)
== END 2023-12-22 05:42 | disposition other institution (70) ==
LOC: EC 00:56
DX: R55 Syncope and collapse
CPT/HCPCS: 36415; 70450; 71046; 72125; 80053; 81001; 81025; 82272; 83735; 84484; 85025; 85610; 85730; 86850; 86900; 86901; 93005; 96361; 96374; 96375; 99283; 99291